=== PATIENT | male | born 1955 | race Caucasian/White ===

== ENCOUNTER 2020-04-14 16:30 | Emergency (ER) | payer MEDICARE, BC ==
--- NOTE | 2020-04-14 16:42 | EDM.PDOC ---
ED HPI GENERAL MEDICAL PROBLEM - General Chief Complaint: Respiratory Problem Stated Complaint: difficult breathing, "Can't do my usual" Time Seen by Provider: 04/14/20 16:30 Source of Information: Reports: Patient, Old Records, Provider History Limitations: Reports: No Limitations - History of Present Illness INITIAL COMMENTS - FREE TEXT/NARRATIVE: Bassem, 64-year-old male, has been experiencing increased difficulty with respiratory status/fatigue. States he is very limited in his ambulation distance at possibly 75 feet. States he normally can walk up to 2 miles but this past week is significantly worsened. Was seen virtually and evaluated with COVID-19 as well as influenza all 3 returning negative from visit date 11 April 2020. States today it is progressively continued to worsen and he is experiencing more difficulty in his function. States he had to hire a replacement for his work secondary of his shortness of breath inability to continue due to respiratory distress and fatigue from that. Has had some fever and chills. States his recent pulmonology consult was told that he had 2 vessels that are some calcified that may cause issues down the road. Chronic back discomfort which is tolerable with his current medication regimen. States bowel and bladder are within limits, stream is not as strong as it was but is adequate with no dysuria. Onset: Gradual Duration: Day(s): Location: Reports: Chest Quality: Reports: Pressure, Same as Previous Episode Severity: Moderate Improves with: Reports: None Worsens with: Reports: Movement Context: Reports: Activity Associated Symptoms: Reports: Fever/Chills - Related Data Allergies Allergy/AdvReac Type Severity Reaction Status Date / Time No Known Allergies Allergy Verified 04/14/20 16:50 Home Meds: Home Meds Acetaminophen [Tylenol Extra Strength] 1,000 mg PO BID 04/14/20 [History] Albuterol Sulfate 2.5 mg IH ASDIRECTED 04/14/20 [History] Albuterol [Ventolin HFA] 2 puff INH Q6H 04/14/20 [History] Celecoxib 200 mg PO BID 04/14/20 [History] Escitalopram Oxalate 20 mg PO DAILY 04/14/20 [History] Esomeprazole Magnesium 40 mg PO DAILY 04/14/20 [History] Fluticasone Furoate [Arnuity Ellipta] 200 mcg IH DAILY 04/14/20 [History] Gabapentin [Neurontin] 300 mg PO DAILY 04/14/20 [History] Ipratropium/Albuterol Sulfate [Iprat-Albut 0.5-3(2.5) MG/3 ML] 1 vial INH ASDIRECTED PRN 04/14/20 [History] Morphine Sulfate 4 mg IJ ASDIRECTED PRN 04/14/20 [History] Tamsulosin HCl [Flomax] 0.4 mg PO DAILY 04/14/20 [History] diphenhydrAMINE HCL [Sominex] 25 mg PO BEDTIME 04/14/20 [History] lisinopriL [Lisinopril] 20 mg PO DAILY 04/14/20 [History] traZODone HCl [Trazodone HCl] 50 mg PO BEDTIME 04/14/20 [History] Past Medical History Cardiovascular History: Reports: Hypertension Respiratory History: Reports: Asthma, Bronchitis, Recurrent Gastrointestinal History: Reports: GERD Genitourinary History: Reports: BPH Musculoskeletal History: Reports: Back Pain, Chronic, Neck Pain, Chronic Psychiatric History: Reports: Anxiety Dermatologic History: Reports: Eczema - Past Surgical History Neurological Surgical History: Reports: C-Spine, Lumbar Spine, Thoracic Spine Musculoskeletal Surgical History: Reports: Hip Replacement - Past Imaging History Past Imaging History: Reports: CAT Scan, MRI, Xray Social & Family History - Family History Family Medical History: Noncontributory ED ROS GENERAL - Review of Systems Review Of Systems: Comprehensive ROS is negative, except as noted in HPI. ED EXAM, GENERAL - Physical Exam Exam: See Below Free Text/Narrative:: Alert oriented speaking with no respiratory distress. HEENT shows no discharge, no deformity, there is no icterus no injection with pupils equal round reactive and light accommodating. Moist mucous membranes. Neck is soft supple no lymphadenopathy. Thorax is raspy with underlying wheeze noted on exhalation with a mildly prolonged expiratory cycle. There are noted scars to the base of the neck cervical thoracic region as well as numerous scars in the lumbar region. Cardiac is S1-S2 I do not appreciate any murmur. He denies experiencing any palpitations or chest discomfort with his respiratory issues. No flank pain to percussion. rectal is deferred. There is no edema to the lower extremities. EKG INTERPRETATION EKG Date: 04/14/20 Time: 16:56 Rhythm: NSR P-Wave: Present QRS: RBBB (depressed t in III and AVF) ST-T: Depressed QT: Normal Comparison: NA - No Prior EKG Course - Vital Signs Last Recorded V/S: Last Vital Signs Temp 37.1 C 04/14/20 18:28 Pulse 91 04/14/20 18:28 Resp 20 04/14/20 18:28 BP 107/75 04/14/20 18:28 Pulse Ox 95 04/14/20 18:28 - Orders/Labs/Meds Orders: Active Orders 24 hr Category Date Time Status Peripheral IV Insertion Adult [OM.PC] Routine Oth 04/14/20 16:44 Ordered EKG 12 Lead [EK] Urgent Ther 04/14/20 16:43 Ordered Labs: Laboratory Tests 04/14/20 04/14/20 04/14/20 Range/Units 17:15 17:15 17:15 WBC 7.94 (5.00-10.00) 10^3/uL RBC 3.06 L (4.50-6.00) 10^6/uL Hgb 9.5 L D (13.0-17.0) g/dL Hct 30.0 L (40.0-52.0) % MCV 98.0 H D (82.0-92.0) fL MCH 31.0 (27.0-31.0) pg MCHC 31.7 L (32.0-36.0) g/dL RDW 15.8 H (11.5-14.5) % Plt Count 140 L (150-400) 10^3/uL MPV 11.9 H (7.4-10.4) fL Immature Gran % (Auto) 0.5 (0.0-5.0) % Neut % (Auto) 52.7 (50.0-70.0) % Lymph % (Auto) 23.2 (20.0-40.0) % [place] % (Auto) 22.0 H (2.0-8.0) % Eos % (Auto) 1.1 (1.0-3.0) % Baso % (Auto) 0.5 (0.0-1.0) % Neut # (Auto) 4.18 (2.50-7.00) 10^3/uL Lymph # (Auto) 1.84 (1.00-4.00) 10^3/uL [place] # (Auto) 1.75 H (0.10-0.80) 10^3/uL Eos # (Auto) 0.09 L (0.10-0.30) 10^3/uL Baso # (Auto) 0.04 (0.00-0.10) 10^3/uL Immature Gran # (Auto) 0.04 (0.00-0.50) 10^3/uL D-Dimer, Quantitative 460 H (<400) ng/mL Sodium 137 (136-145) mmol/L Potassium 5.9 H (3.3-5.3) mmol/L Chloride 105 (98-115) mmol/L Carbon Dioxide 20.9 L (21.0-32.0) mmol/L Anion Gap 17.0 H (5-15) mmol/L BUN 67 H* D (6-25) mg/dL Creatinine 4.55 H D (0.51-1.17) mg/dL Est Cr Clr Drug Dosing TNP Estimated GFR (MDRD) 13 mL/min Glucose 102 H (75 - 99) mg/dL Lactic Acid (0.4-2.0) mmol/L Calcium 8.8 (8.7-10.3) mg/dL Total Bilirubin 0.3 (0.2-1.0) mg/dL AST 23 (15-37) U/L ALT 38 (12-78) U/L Alkaline Phosphatase 64 (46-116) IU/L Creatine Kinase 161 (26-276) U/L CK-MB (CK-2) 1.40 (0.00-4.30) ng/mL Troponin I 0.13 H* (0.00-0.070) ng/mL B-Natriuretic Peptide 44 (0-100) pg/mL Total Protein 7.3 (6.4-8.2) g/dL Albumin 3.89 (3.00-4.80) g/dL Specimen Type Urine Color (YELLOW) Urine Appearance (CLEAR) Urine pH (5.0-9.0) Ur Specific [place] (1.005-1.030) Urine Protein (NEGATIVE) mg/dL Urine Glucose (UA) (NEGATIVE) mg/dL Urine Ketones (NEGATIVE) mg/dL Urine Occult Blood (NEGATIVE) Urine Nitrite (NEGATIVE) Urine Bilirubin (NEGATIVE) Urine Urobilinogen (0.2-1.0) E.U./dL Ur Leukocyte Esterase (NEGATIVE) Urine RBC (0-5) /HPF Urine WBC (0-5) /HPF Ur Epithelial Cells /LPF Amorphous Sediment (0/HPF) /HPF Urine Bacteria (NONE TO FEW) /HPF 04/14/20 04/14/20 Range/Units 17:15 17:15 WBC (5.00-10.00) 10^3/uL RBC (4.50-6.00) 10^6/uL Hgb (13.0-17.0) g/dL Hct (40.0-52.0) % MCV (82.0-92.0) fL MCH (27.0-31.0) pg MCHC (32.0-36.0) g/dL RDW (11.5-14.5) % Plt Count (150-400) 10^3/uL MPV (7.4-10.4) fL Immature Gran % (Auto) (0.0-5.0) % Neut % (Auto) (50.0-70.0) % Lymph % (Auto) (20.0-40.0) % [place] % (Auto) (2.0-8.0) % Eos % (Auto) (1.0-3.0) % Baso % (Auto) (0.0-1.0) % Neut # (Auto) (2.50-7.00) 10^3/uL Lymph # (Auto) (1.00-4.00) 10^3/uL [place] # (Auto) (0.10-0.80) 10^3/uL Eos # (Auto) (0.10-0.30) 10^3/uL Baso # (Auto) (0.00-0.10) 10^3/uL Immature Gran # (Auto) (0.00-0.50) 10^3/uL D-Dimer, Quantitative (<400) ng/mL Sodium (136-145) mmol/L Potassium (3.3-5.3) mmol/L Chloride (98-115) mmol/L Carbon Dioxide (21.0-32.0) mmol/L Anion Gap (5-15) mmol/L BUN (6-25) mg/dL Creatinine (0.51-1.17) mg/dL Est Cr Clr Drug Dosing Estimated GFR (MDRD) mL/min Glucose (75 - 99) mg/dL Lactic Acid 0.8 (0.4-2.0) mmol/L Calcium (8.7-10.3) mg/dL Total Bilirubin (0.2-1.0) mg/dL AST (15-37) U/L ALT (12-78) U/L Alkaline Phosphatase (46-116) IU/L Creatine Kinase (26-276) U/L CK-MB (CK-2) (0.00-4.30) ng/mL Troponin I (0.00-0.070) ng/mL B-Natriuretic Peptide (0-100) pg/mL Total Protein (6.4-8.2) g/dL Albumin (3.00-4.80) g/dL Specimen Type Urincc Urine Color Yellow (YELLOW) Urine Appearance Clear (CLEAR) Urine pH 5.5 (5.0-9.0) Ur Specific [place] >= 1.030 (1.005-1.030) Urine Protein 30 H (NEGATIVE) mg/dL Urine Glucose (UA) Negative (NEGATIVE) mg/dL Urine Ketones Negative (NEGATIVE) mg/dL Urine Occult Blood Trace-lysed H (NEGATIVE) Urine Nitrite Negative (NEGATIVE) Urine Bilirubin Small H (NEGATIVE) Urine Urobilinogen 0.2 (0.2-1.0) E.U./dL Ur Leukocyte Esterase Negative (NEGATIVE) Urine RBC 0-5 (0-5) /HPF Urine WBC 5-10 H (0-5) /HPF Ur Epithelial Cells Occasional /LPF Amorphous Sediment Few (0/HPF) /HPF Urine Bacteria Few (NONE TO FEW) /HPF Meds: Medications Discontinued Medications Generic Name Dose Route Start Last Admin Trade Name Freq PRN Reason Stop Dose Admin Heparin Sodium (Porcine) 4,000 units 04/14/20 18:33 04/14/20 18:44 Heparin Sodium IVPUSH 4,000 units .BOLUS PRN Administration Shortness of Breath Sodium Chloride 1,000 mls @ 150 mls/hr 04/14/20 16:45 04/14/20 17:27 Normal Saline IV 150 mls/hr ASDIRECTED WILLIAN Administration Heparin Sodium/Dextrose 250 mls @ 13.844 mls/hr 04/14/20 18:45 04/14/20 18:54 IV 14 units/kg/hr TITRATE WILLIAN 13.844 mls/hr Administration 14 UNITS/KG/HR Sodium Chloride 10 ml 04/14/20 16:44 Saline Flush FLUSH Q8HR PRN keep vein open - Re-Assessments/Exams Free Text/Narrative Re-Assessment/Exam: 04/14/20 18:51 Was rested comfortable speaking freely with no acute distress nor pain. Was advised of the positive findings and the requirement for higher level of care to further assess these concerns. Departure - Departure Time of Disposition: 19:10 Disposition: DC/Tfer to [facility] 02 Condition: Fair Clinical Impression: Shortness of breath on exertion, Elevated d-dimer, Elevated troponin I level, Elevated BUN, New electrocardiogram abnormalities consistent with ischemia noted during preoperative cardiovascular examination, History of coronary artery disease Acute renal failure Qualifiers: Acute renal failure type: unspecified Qualified Code(s): N17.9 - Acute kidney failure, unspecified - Discharge Information *PRESCRIPTION DRUG MONITORING PROGRAM REVIEWED*: Not Applicable *COPY OF PRESCRIPTION DRUG MONITORING REPORT IN PATIENT COREY: Not Applicable Referrals: Maggie Ross PA-C [Primary Care Provider] - Forms: ED Department Discharge Additional Instructions: Will be transferred [facility] for the aforementioned diagnosis as we are unable to perform PET scan due to significantly elevated creatinine, d-dimer and troponin elevation both to be treated with heparin bolus 4000 units followed by heparin drip at 14 units/kg/h. Sepsis Event Note (ED) - Focused Exam Vital Signs: Vital Signs Temp Pulse Resp BP Pulse Ox 04/14/20 18:28 37.1 C 91 20 107/75 95 04/14/20 18:00 90 16 142/68 H 98 04/14/20 17:45 90 14 146/90 H 97 04/14/20 17:30 86 12 135/77 97 04/14/20 17:15 85 14 118/66 96 - Problem List & Annotations (1) Shortness of breath on exertion SNOMED Code(s): 94022253 Code(s): R06.02 - SHORTNESS OF BREATH Status: Chronic Priority: High (2) Elevated d-dimer SNOMED Code(s): 154628297 Code(s): R79.89 - OTHER SPECIFIED ABNORMAL FINDINGS OF BLOOD CHEMISTRY Status: Acute Priority: High (3) Elevated troponin I level SNOMED Code(s): 674648067 Code(s): R79.89 - OTHER SPECIFIED ABNORMAL FINDINGS OF BLOOD CHEMISTRY Status: Acute Priority: High (4) Elevated BUN SNOMED Code(s): 352043863 Code(s): R79.9 - ABNORMAL FINDING OF BLOOD CHEMISTRY, UNSPECIFIED Status: Acute Priority: High (5) Acute renal failure SNOMED Code(s): 93090265 Code(s): N17.9 - ACUTE KIDNEY FAILURE, UNSPECIFIED Status: Acute Priorit y: High Qualifiers: Acute renal failure type: unspecified Qualified Code(s): N17.9 - Acute kidney failure, unspecified (6) New electrocardiogram abnormalities consistent with ischemia noted during preoperative cardiovascular examination SNOMED Code(s): 721970252 Code(s): Z01.810 - ENCOUNTER FOR PREPROCEDURAL CARDIOVASCULAR EXAMINATION; R94.31 - ABNORMAL ELECTROCARDIOGRAM [ECG] [EKG] Status: Acute Priority: High (7) History of coronary artery disease SNOMED Code(s): 764525511 Code(s): Z86.79 - PERSONAL HISTORY OF OTHER DISEASES OF THE CIRCULATORY SYSTEM Status: Acute Priority: High - Problem List Review Problem List Initiated/Reviewed/Updated: Yes - My Orders Last 24 Hours: My Active Orders 04/14/20 16:43 EKG 12 Lead [EK] Urgent 04/14/20 16:44 Peripheral IV Insertion Adult [OM.PC] Routine - Assessment/Plan Last 24 Hours: My Active Orders 04/14/20 16:43 EKG 12 Lead [EK] Urgent 04/14/20 16:44 Peripheral IV Insertion Adult [OM.PC] Routine Plan: Will be transferred [facility] for the aforementioned diagnosis as we are unable to perform PET scan due to significantly elevated creatinine, d-dimer and troponin elevation both to be treated with heparin bolus 4000 units followed by heparin drip at 14 units/kg/h.
[2020-04-14] MEDS ORDERED: Sodium Chloride 0.9% 10 ML Syringe FLUSH PRN (16:44)
[2020-04-14] MEDS ORDERED: Sodium Chloride 0.9% 1,000 ML IV SCH (16:45)
--- NOTE | 2020-04-14 17:43 | CR ---
[id number] RAD/RAD Chest PA And Lateral EXAM: RAD Chest PA And Lateral CLINICAL DATA: SHORTNESS OF BREATH COMPARISON: CORRELATION IS MADE WITH SEPTEMBER 02, 2019 FINDINGS: The lungs are clear. The cardiomediastinal contour is prominent but stable. The regional bones and soft tissues are unremarkable. IMPRESSION: NO ACUTE PROCESS. Dennis Castanon MD 04/14/20 0124 Thank you for allowing us to participate in the care of your patient.
[2020-04-14 18:16] LABS: CHLORIDE,CL 105 mmol/L (98-115); SODIUM,NA 137 mmol/L (136-145)
[2020-04-14] MEDS ORDERED: Heparin Sodium 5,000 Units/ML Vial IVPUSH PRN (18:33)
[2020-04-14] MEDS ORDERED: Heparin Sodium/D5W 250 ML IV SCH (18:45)
== END 2020-04-14 19:30 ==
LOC: KA.ED 16:30
DX: R06.02 Shortness of breath (principal); R79.1 Abnormal coagulation profile; R79.89 Other specified abnormal findings of blood chemistry; R94.31 Abnormal electrocardiogram [ECG] [EKG]; I25.10 Atherosclerotic heart disease of native coronary artery without angina pectoris; N17.9 Acute kidney failure, unspecified; I45.10 Unspecified right bundle-branch block; I10 Essential (primary) hypertension; J45.909 Unspecified asthma, uncomplicated; K21.9 Gastro-esophageal reflux disease without esophagitis; N40.0 Benign prostatic hyperplasia without lower urinary tract symptoms; F41.9 Anxiety disorder, unspecified; Z79.899 Other long term (current) drug therapy
CPT/HCPCS: 36415; 71046; 80053; 81001; 82550; 82553; 83605; 83880; 84484; 85025; 85379; 93005; 96361; 96365; 99284; 99285-25; J1644; J7030